=== PATIENT | female | born 1950 | race Caucasian/White ===

== ENCOUNTER → 2024-03-13 10:23 | Outpatient (REF) | payer MEDICARE, OTHER, SELFPAY | LOC: HWRAD 10:23 | PROVIDERS: ATTENDING PHYSICIAN Student in an Organized Health Care Education/Training Program; FAMILY PHYSICIAN Family Medicine | DX: Z12.31 Encounter for screening mammogram for malignant neoplasm of breast (principal); N20.0 Calculus of kidney | CPT/HCPCS: 76770; 77063; 77067 ==

== ENCOUNTER 2024-07-19 20:58 | Emergency (ER) | payer MEDICARE, OTHER, SELFPAY ==
[2024-07-19 21:00] VITALS: BP 190/109
[2024-07-19 21:32] VITALS: BP 196/100
[2024-07-19 21:36] VITALS: BMI 42.6
[2024-07-19 21:40] VITALS: BP 215/87
[2024-07-19 22:00] VITALS: BP 183/90
--- NOTE | 2024-07-19 22:29 | ED.GENMED ---
History of Present Illness
General
Chief Complaint: Skin Problem
Source: patient and family
Exam Limitations: none
Time Seen by Provider: 07/19/24 22:03
Nursing documentation reviewed up to this point in time: agreed with
History of Present Illness
History of Present Illness:
74-year-old female presenting to the emergency department today with concerns of rash to the right abdomen. Previously treated with doxycycline for possible tick exposure concerning was somewhat circular in shape. Denies any systemic symptoms
fevers chills nausea vomiting. She has slight increase of
Past History
Past History
ED Past Medical History: CAD, CVA (TIA), Hypercholesterolemia, Seizures and Other (Possible TGA, Kidney stones, Occular Migraines, Diverticulitis, ); Negative HTN or NIDDM
ED Past Surgical History: (X2), Orthopedic (Left knee surgery) and Other (Fissure repair)
Social History
Tobacco: Non-smoker
Alcohol: Occasional
Drug: None
Personal:
Living: with family
Employment: Retired
Family History
Family History: Other (Coronary disease, pancreatic cancer)
Review of Systems
Review of Systems
Allergies reviewed?: Yes
All Other Systems: ROS reviewed and negative except as documented in HPI and ROS
Phy Exam
Physical Exam
Physical Exam:
GENERAL: Alert , in no apparent distress
EYE: pupils equal and reactive
NECK: Supple, no significant adenopathy.
ENT: o/p clr, mmm.
CARDIAC: Regular rate and rhythm .
LUNGS: Clear breath sounds bilaterally, no acute respiratory distress, no wheezes/rales/rhonchi
ABDOMEN: Soft, without focal tenderness, no r/g, no cvat
NEUROLOGICAL: Alert and oriented, no focal neuro deficits
SKIN: Superficial rash that is generally circular in nature to the right lower abdomen no tenderness to palpation no vesicles scaly at its periphery mildly red no significant warmth no fluctuance or induration no vesicles roughly 1 foot x 6 inches
in size. Warm and dry, skin intact.
MUSCULOSKELETAL: No edema, well perfused.
PSYCH: Normal and appropriate interaction.
Course
Vital Signs
Initial and Last Documented VS:
Initial Vital Signs
Temp Pulse Resp BP Pulse Ox
98.3 F 81 19 190/109 98
07/19/24 21:00 07/19/24 21:00 07/19/24 21:00 07/19/24 21:00 07/19/24 21:00
Last Documented Vital Signs
Temp Pulse Resp BP Pulse Ox
98.3 F 81 19 190/109 98
07/19/24 21:00 07/19/24 21:00 07/19/24 21:00 07/19/24 21:00 07/19/24 21:00
MDM/Problems Addressed
MDM/Problems Addressed:
74-year-old female presenting to the emergency department today with concerns of a rash to the right lower quadrant of the abdomen worsening despite taking doxycycline. No significant tenderness not painful in general no systemic symptoms normal
vital signs no fever blood pressure is elevated but patient is noticeably anxious blood pressure improving throughout stay here she was advised to closely monitor this at home. Otherwise rash does not seem to be consistent with cellulitis
considering no tenderness no discomfort no deep redness to the area central pallor. Potentially more consistent with fungal infection treated with fungal also advised to continue the doxycycline with the possibility of erythema migrans otherwise
advised for close outpatient follow-up. Return precautions given.
*Critical Care Note
Total Time (30-74mins, 75-104mins- exclusive of procedures): Not Applicable
ED Attending Note
-
Portions of this chart may have been created with voice recognition software.� Occasional wrong word or��sound alike� substitutions may have occurred due to the inherent limitations of voice recognition software.
Discharge Plan
Departure
Patient Disposition: Home (Routine Discharge)
Date of Disposition: 07/19/24
Time of Disposition: 22:45
Patient with high blood pressure during this ER visit?: No
Condition: Good
Covid-19: Not Applicable
Discharge Problem:
Rash
Instructions: Skin Rash (DC)
Prescriptions:
New
clotrimazole-betamethasone 1-0.05 % cream
1 applic topical BID 14 Days Qty: 45 0RF
No Action
atorvastatin 20 MG tablet
20 mg PO QPM
Areds
1 tab PO BID
aspirin 81 mg Tablet,Delayed Release (Dr/Ec)
81 mg PO DAILY
tramadol 50 mg Tablet
25 - 50 mg PO Q6H PRN (Reason: pain)
tamsulosin [Flomax] 0.4 mg capsule
0.4 mg PO DAILY Qty: 14 0RF
oxycodone 5 mg tablet
5 mg PO Q8H PRN (Reason: Pain) Qty: 7 0RF
Referrals:
Jamir Ziegler MD [Family Provider] -
Activity Restrictions/Additional Instructions:
You came to the emergency department today with concerns of a rash to your abdomen. Please use the prescribed cream and continue your doxycycline. Please follow close with primary care doctor in the next few days for reassessment. Return to the
emergency department for any worsening, new or concerning symptoms.
Interventions
Interventions:
*Risk Screen - Suicide Last Done: 07/19/24 20:58
*General Assessment Last Done: 07/19/24 21:00
*Neglect/Abuse Screening Last Done: 07/19/24 21:00
ED- Fall Risk Assessment Last Done: 07/19/24 21:39
ED-Skin Assessment Last Done: 07/19/24 21:38
Discharge Date and Time
Print Language: PERSIAN
== END 2024-07-19 22:55 | disposition home or self-care (01) ==
LOC: EMR 20:58
PROVIDERS: EMERGENCY PHYSICIAN Student in an Organized Health Care Education/Training Program; FAMILY PHYSICIAN Family Medicine
DX: R21 Rash and other nonspecific skin eruption (principal); I25.10 Atherosclerotic heart disease of native coronary artery without angina pectoris; Z86.73 Personal history of transient ischemic attack (TIA), and cerebral infarction without residual deficits; E78.00 Pure hypercholesterolemia, unspecified; R56.9 Unspecified convulsions; K57.92 Diverticulitis of intestine, part unspecified, without perforation or abscess without bleeding; G43.909 Migraine, unspecified, not intractable, without status migrainosus; Z87.442 Personal history of urinary calculi; Z79.82 Long term (current) use of aspirin; Z91.018 Allergy to other foods; Z91.048 Other nonmedicinal substance allergy status
CPT/HCPCS: 99283

== ENCOUNTER → 2024-07-22 09:37 | Outpatient (REF) | payer MEDICARE, OTHER, SELFPAY | LOC: MRI 3T 09:37 | PROVIDERS: ATTENDING PHYSICIAN Orthopaedic Surgery; FAMILY PHYSICIAN Family Medicine | DX: M25.562 Pain in left knee (principal) | CPT/HCPCS: 73721 ==

== ENCOUNTER 2025-01-02 09:08 | Emergency (ER) | payer MEDICARE, OTHER, SELFPAY ==
[2025-01-02 09:14] VITALS: BP 190/108
[2025-01-02 11:55] VITALS: BMI 41.2
[2025-01-02 12:00] VITALS: BP 194/103
[2025-01-02 13:31] VITALS: BP 173/85
--- NOTE | 2025-01-02 13:56 | ED.GENMED ---
History of Present Illness
General
Chief Complaint: Nose Bleed
Source: patient
Exam Limitations: none
Time Seen by Provider: 01/02/25 12:19
Nursing documentation reviewed up to this point in time: agreed with
History of Present Illness
History of Present Illness:
Patient presents to ED secondary to intermittent nosebleed over the past 1 week, including this morning. Denies trauma. Patient does not take any blood thinning medications. Patient denies dizziness, shortness of breath, chest palpitations, or
nausea sensation. Patient has had number of similar episodes in the past, requiring cauterization by ENT physician. Denies recent illness.
Past History
Past History
ED Past Medical History: CAD, CVA (TIA), Hypercholesterolemia, Seizures and Other (Possible TGA, Kidney stones, Occular Migraines, Diverticulitis, ); Negative HTN or NIDDM
ED Past Surgical History: (X2), Orthopedic (Left knee surgery) and Other (Fissure repair)
Social History
Tobacco: Non-smoker
Alcohol: Occasional
Drug: None
Personal:
Living: with family
Employment: Retired
Family History
Family History: Other (Coronary disease, pancreatic cancer)
Review of Systems
Review of Systems
Allergies reviewed?: Yes
All Other Systems: ROS reviewed and negative except as documented in HPI and ROS
Constitutional: Reports no symptoms
EENT: Reports other (Epistaxis)
Respiratory: Reports no symptoms; Denies trouble breathing
ABD/GI: Reports no symptoms; Denies nausea
Musculoskeletal: Reports no symptoms
Skin: Reports no symptoms
Neurological: Reports no symptoms; Denies dizzy or weakness
Phy Exam
Physical Exam
Physical Exam:
Physical Exam
General: no apparent distress, not acutely ill. afebrile
Head: nc/at. eomi
Neck: supple. normal posterior pharynx. no active bleeding noted inside b/l nostril
Abdomen: normal bowel sounds. not tender.
Neuro: alert and oriented x 3. no focal neurological deficits
Skin: no rash
Psychiatric: well kept. interactive and cooperative
Extremities: no edema. no calf tenderness.
Course
Vital Signs
Initial and Last Documented VS:
Initial Vital Signs
Temp Pulse Resp BP Pulse Ox
98.2 F 72 16 190/108 98
01/02/25 09:14 01/02/25 09:14 01/02/25 09:14 01/02/25 09:14 01/02/25 09:14
Last Documented Vital Signs
Temp Pulse Resp BP Pulse Ox
98.2 F 71 16 173/85 98
01/02/25 09:14 01/02/25 13:31 01/02/25 13:31 01/02/25 13:31 01/02/25 09:14
Procedures
Nosebleed
Drug treatment: none
Treatment: local pressure applied and Merocel packing
MDM/Problems Addressed
MDM/Problems Addressed:
Patient without any further episodes of bleeding during observation. In light of patient's intermittent episodes, decision made to place Merocel packing. Discussed with on-call ENT physician, Dr. Green, who will reevaluate the patient in the
office next week
*Critical Care Note
Total Time (30-74mins, 75-104mins- exclusive of procedures): Not Applicable
ED Attending Note
-
Portions of this chart may have been created with voice recognition software.� Occasional wrong word or��sound alike� substitutions may have occurred due to the inherent limitations of voice recognition software.
Discharge Plan
Departure
Patient Disposition: Home (Routine Discharge)
Date of Disposition: 01/02/25
Time of Disposition: 13:59
Patient with high blood pressure during this ER visit?: Yes
Discharge Problem:
Epistaxis
Instructions: Nosebleeds (DC)
Prescriptions:
No Action
atorvastatin 20 MG tablet
20 mg PO QPM
Areds
1 tab PO BID
aspirin 81 mg Tablet,Delayed Release (Dr/Ec)
81 mg PO DAILY
tramadol 50 mg Tablet
25 - 50 mg PO Q6H PRN (Reason: pain)
tamsulosin [Flomax] 0.4 mg capsule
0.4 mg PO DAILY Qty: 14 0RF
oxycodone 5 mg tablet
5 mg PO Q8H PRN (Reason: Pain) Qty: 7 0RF
clotrimazole-betamethasone 1-0.05 % cream
1 applic topical BID 14 Days Qty: 45 0RF
Referrals:
Jimenez Green MD [Active] -
Jamir Ziegler MD [Family Provider] -
Activity Restrictions/Additional Instructions:
As discussed, please follow-up with your ENT physician on Sunday at 11 AM for further evaluation and treatment.
Interventions
Interventions:
*Risk Screen - Suicide Last Done: 01/02/25 09:14
*General Assessment Last Done: 01/02/25 09:14
*Neglect/Abuse Screening Last Done: 01/02/25 09:14
ED- Fall Risk Assessment Last Done: 01/02/25 11:57
*ED COVID-19 Vaccine History Last Done: 01/02/25 09:14
*Nursing Disposition Last Done: 01/02/25 14:09
ED-EENT Assessment Last Done: 01/02/25 11:57
Discharge Date and Time
Discharge Date/Time: 01/02/25 14:12
Print Language: UPPER SORBIAN
== END 2025-01-02 14:12 | disposition home or self-care (01) ==
LOC: EMR 09:08
PROVIDERS: EMERGENCY PHYSICIAN Emergency Medicine; FAMILY PHYSICIAN Family Medicine
DX: R04.0 Epistaxis (principal); I25.10 Atherosclerotic heart disease of native coronary artery without angina pectoris; E78.00 Pure hypercholesterolemia, unspecified; Z82.49 Family history of ischemic heart disease and other diseases of the circulatory system; Z86.73 Personal history of transient ischemic attack (TIA), and cerebral infarction without residual deficits
CPT/HCPCS: 99282; 30901

== ENCOUNTER → 2025-03-23 14:50 | Outpatient (REF) | payer MEDICARE, OTHER, SELFPAY | LOC: HWWDC 14:50 | PROVIDERS: ATTENDING PHYSICIAN Family Medicine; REFERRING PHYSICIAN Obstetrics & Gynecology Gynecology | DX: Z12.31 Encounter for screening mammogram for malignant neoplasm of breast (principal) | CPT/HCPCS: 77063; 77067 ==

== ENCOUNTER 2025-10-15 06:20 | Day surgery (SDC) | payer MEDICARE, OTHER, SELFPAY | END 2025-10-15 12:05 | disposition home or self-care (01) | LOC: GI 06:20 | PROVIDERS: ATTENDING PHYSICIAN Internal Medicine Gastroenterology; FAMILY PHYSICIAN Family Medicine | DX: Z12.11 Encounter for screening for malignant neoplasm of colon (principal); K57.30 Diverticulosis of large intestine without perforation or abscess without bleeding; K64.8 Other hemorrhoids; D12.2 Benign neoplasm of ascending colon; D12.3 Benign neoplasm of transverse colon; D12.4 Benign neoplasm of descending colon; K62.1 Rectal polyp; Z86.0101 Personal history of adenomatous and serrated colon polyps | CPT/HCPCS: 45385; 45380; 88305 ==